=== PATIENT | female | born 1995 | race Caucasian/White ===

== ENCOUNTER 2024-08-30 13:13 | Emergency (ER) | payer OTHER, SELFPAY ==
--- NOTE | ~2024-08-30 | CT_ITS ---
CLINICAL HISTORY: ABD pain, N V D CT abdomen and pelvis with contrast Comparison: None Findings: The lung bases are clear. Unremarkable gallbladder and solid organs. No urolithiasis. No bowel obstruction, pneumoperitoneum, or pneumatosis. Pelvic contents unremarkable. Normal appendix. The bones are intact. IMPRESSION: No acute findings. This document has been electronically signed by: Balaji Cordova MD on 08/30/2024 19:55:25
--- NOTE | 2024-08-30 13:50 | ED.LOWEXIN ---
HPI - Extremity Injury (Lower) General Chief Complaint: Nausea/Vomiting/Diarrhea Stated Complaint: vomiting fever headache chills Time Seen by Provider: 08/30/24 13:58 Source: patient Mode of arrival: ambulatory Limitations: no limitations History of Present Illness ED Provider: junior aguilera cnp HPI Narrative: Patient is a 28-year-old female who presents emergency department for evaluation. She reports at approximately 00:00 this morning she consumed a Lane's, and around 04:00 this morning she began having nausea, vomiting, diarrhea, headache, subjective fever and chills. She denies any recent known sick contacts. She denies any recent URI symptoms. Denies chest pain, hematemesis, constipation, hematochezia, melena, dysuria, urinary frequency, urinary urgency, urinary hesitancy, hematuria. denies pelvic pain or abnormal vaginal discharge. Denies concern for sexually transmitted infection. Denies concern for . Related Data Previous Rx's ?Medication ?Instructions ?Recorded ondansetron 4 mg disintegrating 4 mg PO Q8H PRN nausea and 08/30/24 tablet vomiting #10 tabs Allergies Allergy/AdvReac Type Severity Reaction Status Date / Time No Known Allergies Allergy Verified 08/30/24 13:52 Review of Systems Review of Systems: Yes all other systems are reviewed and are negative PMFSH Past Medical History Attestation statement: The following information was validated with the patient. Source: old records reviewed Social History Social History Alcohol intake: current Smoked in Last 30 Days: No Use of substances other than those prescribed or required for medical reasons: No Advance Directives: No Advance Directives Information Provided: No Patient : No Physical Exam Vital Signs: Vital Signs: Last Vital Signs Temp 98.6 F 08/30/24 19:42 Pulse 107 H 08/30/24 19:42 Resp 16 08/30/24 19:42 BP 125/86 08/30/24 19:42 Pulse Ox 100 08/30/24 19:42 O2 Del Method Room Air 08/30/24 19:42 BMI result Body Mass Index 46.1 Appearance: Alert.?Oriented to person, place and time. No acute distress.?Normal affect.?? Neck: Normal inspection.? Neck supple.?? CVS: Heart sounds normal. Tachycardia.? Pulses normal.?? Respiratory: No respiratory distress.? Lung sounds clear to auscultation bilaterally?? Abdomen: Soft and non-tender. No rebound tenderness at McBurney's point. Negative psoas sign. Negative Rovsing sign. Negative Corley sign. No CVAT. Normoactive bowel sounds. No pulsatile mass.?? Skin: Skin warm and dry.? Normal skin color.? Extremities: No lower extremity edema.? Neuro: Moves all extremities spontaneously. Sensation intact bilaterally. Ambulates with normal steady gait. Course Course Course Narrative: This is a rapid medical exam performed by Arianne Kirkland NP: Additional HPI, ROS, PE not included below will be deferred to primary provider. 08/30/24 13:50 Patient is a 28-year-old female presenting with complaint of nausea, vomiting, diarrhea, headache, subjective fever/chills since 4am. Reports ordering [employer] which was Door Dashed prior to onset of symptoms. Plan: viral panel, labs Reevaluation(s) Reevaluation #1: Patient without relief from Zofran Toradol and Pepcid. On re-evaluation she is exquisitely tender diffusely across the upper abdomen. Will trial morphine IV and Reglan IV, CT AP. Reevaluation #2: CT of the abdomen pelvis is negative without acute pathology. Suspect a gastrointestinal illness either viral or food-borne. These findings were discussed with patient. Advised bland diet over the next few days. Will send an antiemetic to pharmacy. Reviewed strict return precautions. All questions answered Medications Administered Discontinued Medications Generic Name Dose Route Start Last Admin Trade Name Freq PRN Reason Stop Dose Admin Famotidine 20 mg 08/30/24 14:15 08/30/24 14:22 Famotidine/Pf 20 Mg/2 Ml Vial IVPUSH 08/30/24 14:16 20 mg ONCE ONE Administration Sodium Chloride 1,000 mls @ 999 mls/hr 08/30/24 14:15 08/30/24 15:55 Ns IV 08/30/24 15:15 Infused .Q1H1M MORGAN Infusion Sodium Chloride 1,000 mls @ 999 mls/hr 08/30/24 17:45 08/30/24 19:00 Ns IV 08/30/24 18:45 Infused .Q1H1M MORGAN Infusion Iohexol 85 ml 08/30/24 16:19 08/30/24 16:20 Iohexol 350 Mg/Ml 100 Ml Infus..Btl IV 08/30/24 16:20 85 ml ONCE ONE Administration Ketorolac Tromethamine 15 mg 08/30/24 14:15 08/30/24 14:22 Ketorolac Tromethamine 15 Mg/Ml Vial IVPUSH 08/30/24 14:16 15 mg ONCE ONE Administration Metoclopramide HCl 10 mg 08/30/24 15:48 08/30/24 15:59 Metoclopramide Hcl 10 Mg/2 Ml Vial IVPUSH 08/30/24 15:49 10 mg ONCE ONE Administration Morphine Sulfate 4 mg 08/30/24 15:48 08/30/24 15:59 Morphine Sulfate 4 Mg/Ml Cartridge IVPUSH 08/30/24 15:49 4 mg ONCE ONE Administration Protocol Ondansetron HCl 4 mg 08/30/24 14:15 08/30/24 14:22 Ondansetron Hcl 4 Mg/2 Ml Vial IVPUSH 08/30/24 14:16 4 mg ONCE ONE Administration Medical Decision Making Medical Decision Making [facility] Narrative: Patient is a 28-year-old female who presents emergency department for evaluation of nausea vomiting diarrhea and abdominal cramping with onset earlier this morning approximately [address]'s. She arrives mildly tachycardic, she was afebrile, no hypotension. Her abdominal examination is benign. At this time I have a lower suspicion for acute abdomen, there was no peritoneal signs. No associated chest pain or shortness of breath or URI symptoms to suggest pneumonia as a cause for the abdominal pain. I turned this is rather secondary to her acute gastrointestinal illness, as nature possible food-borne illness. Denies any history of cholelithiasis, benign abdominal exam, no fever jaundice that would favor acute cholangitis. She denies history of acid reflux, no hematemesis, lower suspicion for PUD. Denies excessive alcohol consumption or history of diabetes that would suggest acute pancreatitis. No associated genitourinary symptoms to suggest UTI/pyelonephritis, renal colic, hydronephrosis. hCG is negative, unlikely ectopic , lower clinical suspicion for TOA/torsion. Will obtain CBC to evaluate for leukocytosis/ anemia, CMP and lipase to evaluate for abnormal electrolytes /abnormal renal function/ abnormal hepatic/biliary function, viral serologies and Urinalysis. Patient to receive 1 L normal saline IV fluid, Zofran 4 mg IV, famotidine 20 mg IV, Toradol 15 mg IV. Differential Diagnosis Differential Diagnoses: The differential diagnosis associated with the presentation includes (See narrative above) Admission/Observation Consideration of admission/observation: Escalation of care including admission/observation considered (See narrative above and course narrative for further detail) Lab Data MDM Lab Attestation statement: I reviewed the patient's lab results. CBC reveals a leukocytosis of 22,400 with shift (suspect react secondary to vomiting), no anemia or thrombocytopenia. No significant electrolyte derangement. No BABAK. Minimally elevated AST/ALT at 52/76, lipase normal. 08/30/24 14:08 08/30/24 14:08 Labs: Lab Results 08/30/24 08/30/24 08/30/24 Range/Units 14:08 14:11 16:58 WBC 22.4 H (4.8-10.8) X10*3/uL RBC 5.07 (4.20-5.50) X10*6/uL Hgb 14.9 (12.0-16.0) g/dl Hct 43.4 (37.0-47.0) % MCV 85.6 (80.0-98.0) fL MCH 29.4 (27.0-33.0) pg MCHC 34.3 (31.0-35.0) g/dl RDW 13.3 (11.0-16.0) % Plt Count 310 (160-400) X10*3/uL MPV 10.6 (9.4-12.3) fL Immature Gran % (Auto) 0.4 (0.0-0.4) % Neut % (Auto) 92.2 H (45-73) % Lymph % (Auto) 3.4 L (20-40) % [place] % (Auto) 3.6 (2-11) % Eos % (Auto) 0.2 (0-4) % Baso % (Auto) 0.2 (0-2) % Lymph # (Auto) 0.8 L (1.2-4.9) X10*3/uL [place] # (Auto) 0.8 (0.1-1.2) X10*3/uL Eos # (Auto) 0.0 (0.0-0.4) X10*3/uL Baso # (Auto) 0.0 (0.0-0.2) X10*3/uL Abs Immat Gran (auto) 0.09 H (0.00-0.03) X10*3/uL Absolute Neuts (auto) 20.7 H (2.0-8.3) x10*3/uL Absolute Nucleated RBC 0.000 (0.0-0.012) X10*3/uL Nucleated RBC % (auto) 0.0 (0.0-0.2) /100WBC Smear Tech's Comments VERIFIED Sodium 142 (135-145) mmol/L Potassium 4.0 (3.3-5.1) mmol/L Chloride 110 H (96-108) mmol/L Carbon Dioxide 23 (22-29) mmol/L Anion Gap 13 (12-20) BUN 12 (9-16) mg/dL Creatinine 0.73 (0.5-1.4) mg/dL Estim Creat Clear Calc 122.0 Estimated GFR > 60 Random Glucose 107 (60-115) mg/dL Lactic Acid 2.2 H* (0.5-2.0) mmol/L Calcium 9.5 (8.4-10.2) mg/dL Total Bilirubin 0.5 (0.0-1.0) mg/dL AST 52 H (5-31) U/L ALT 76 H (0-31) U/L Alkaline Phosphatase 96 (39-117) U/L Total Protein 8.3 H (6.5-8.0) g/dL Albumin 4.8 (3.5-5.0) g/dL Lipase 12 (8-78) U/L Beta HCG, Quant < 2 mIU/mL Urine Color Urine Appearance Urine pH (5.0-9.0) Ur Specific [place] (1.005-1.025) Urine Protein (Neg-Trace) mg/dL Urine Glucose (UA) (Negative) mg/dL Urine Ketones (Negative) mg/dL Urine Blood (Negative) Urine Nitrite (Negative) Ur Leukocyte Esterase (Negative) Urine RBC (0-2) /HPF Urine WBC (0-5) /HPF Ur Squamous Epith Cells (0-2) /HPF Urine Bacteria (None Seen) Hyaline Casts (0-2) /LPF Influenza Type A (PCR) NEGATIVE (Negative) Influenza Type B (PCR) NEGATIVE (Negative) RSV RNA Qual (PCR) NEGATIVE (Negative) SARS-CoV-2 RNA (RT-PCR) NEGATIVE (Negative) 08/30/24 Range/Units 17:32 WBC (4.8-10.8) X10*3/uL RBC (4.20-5.50) X10*6/uL Hgb (12.0-16.0) g/dl Hct (37.0-47.0) % MCV (80.0-98.0) fL MCH (27.0-33.0) pg MCHC (31.0-35.0) g/dl RDW (11.0-16.0) % Plt Count (160-400) X10*3/uL MPV (9.4-12.3) fL Immature Gran % (Auto) (0.0-0.4) % Neut % (Auto) (45-73) % Lymph % (Auto) (20-40) % [place] % (Auto) (2-11) % Eos % (Auto) (0-4) % Baso % (Auto) (0-2) % Lymph # (Auto) (1.2-4.9) X10*3/uL [place] # (Auto) (0.1-1.2) X10*3/uL Eos # (Auto) (0.0-0.4) X10*3/uL Baso # (Auto) (0.0-0.2) X10*3/uL Abs Immat Gran (auto) (0.00-0.03) X10*3/uL Absolute Neuts (auto) (2.0-8.3) x10*3/uL Absolute Nucleated RBC (0.0-0.012) X10*3/uL Nucleated RBC % (auto) (0.0-0.2) /100WBC Smear Tech's Comments Sodium (135-145) mmol/L Potassium (3.3-5.1) mmol/L Chloride (96-108) mmol/L Carbon Dioxide (22-29) mmol/L Anion Gap (12-20) BUN (9-16) mg/dL Creatinine (0.5-1.4) mg/dL Estim Creat Clear Calc Estimated GFR Random Glucose (60-115) mg/dL Lactic Acid (0.5-2.0) mmol/L Calcium (8.4-10.2) mg/dL Total Bilirubin (0.0-1.0) mg/dL AST (5-31) U/L ALT (0-31) U/L Alkaline Phosphatase (39-117) U/L Total Protein (6.5-8.0) g/dL Albumin (3.5-5.0) g/dL Lipase (8-78) U/L Beta HCG, Quant mIU/mL Urine Color Yellow Urine Appearance Clear Urine pH 5.5 (5.0-9.0) Ur Specific [place] >= 1.030 H (1.005-1.025) Urine Protein 30 (1+) H (Neg-Trace) mg/dL Urine Glucose (UA) Negative (Negative) mg/dL Urine Ketones Negative (Negative) mg/dL Urine Blood Negative (Negative) Urine Nitrite Negative (Negative) Ur Leukocyte Esterase Negative (Negative) Urine RBC 0-2 (0-2) /HPF Urine WBC 0-5 (0-5) /HPF Ur Squamous Epith Cells 11-20 (0-2) /HPF Urine Bacteria 3+ (None Seen) Hyaline Casts 0-2 (0-2) /LPF Influenza Type A (PCR) (Negative) Influenza Type B (PCR) (Negative) RSV RNA Qual (PCR) (Negative) SARS-CoV-2 RNA (RT-PCR) (Negative) Independent Interpretation I performed an independent interpretation of an: CT Scan Radiology Impression Discussion of test interpretation with radiology: I have reviewed the radiologist's reading. Radiologist Impression: CT abdomen and pelvis with contrast Comparison: None Findings: The lung bases are clear. Unremarkable gallbladder and solid organs. No urolithiasis. No bowel obstruction, pneumoperitoneum, or pneumatosis. Pelvic contents unremarkable. Normal appendix. The bones are intact. IMPRESSION: No acute findings. Independent Historian Clinical information obtained from an independent historian. History obtained from or confirmed by: Spouse External Record Review External record reviewed: Outpatient record Prescription Management I considered prescription management with: Other (See course narrative) Discharge Plan Discharge Clinical Impression: Gastroenteritis Patient Disposition: Home, Self-Care Instructions: Gastroenteritis (ED) Additional Instructions: CT scan did not show any abnormal findings. Suspect that your illnesses due to iron there a viral infection or food-borne illness. Be sure that you are staying well hydrated, drink plenty of fluids including at least 8-12 8 oz glasses of water daily. I have sent a prescription for Zofran to your pharmacy to use as needed for nausea/vomiting. Introduce a bland diet including crackers, bananas, rice, soup, toast, and boiled vegetables. This may progress to plain baked or boiled chicken or turkey. Avoid dairy products or foods high in fat or grease. Follow-up with your primary care doctor. Return with any new or worsening symptoms or concerns Prescriptions: New ondansetron 4 mg tablet,disintegrating 4 mg PO Q8H PRN (Reason: nausea and vomiting) Qty: 10 0RF Referrals: Physician,Unknown J [Primary Care Provider] - Print Language: Belarusian
[2024-08-30 13:51] VITALS: BP 106/73; PULSE 114; RESP 16; TEMP 36.7; O2SAT 97; BMI 46.1
[2024-08-30] MEDS: 0.9 % Sodium Chloride 1,000 ML 999 ML IV ×2 (14:20→17:40)
[2024-08-30 14:21] LABS: Basophils Percent Auto 0.2 % (0-2); Eosinophils Percent Auto 0.2 % (0-4); Hematocrit 43.4 % (37.0-47.0); Hemoglobin 14.9 g/dl (12.0-16.0); Imm Gran Abs Auto 0.09 X10*3/uL (0.00-0.03); Imm Gran Pct Auto 0.4 % (0.0-0.4); Lymphocytes Absolute Auto 0.8 X10*3/uL (1.2-4.9); Lymphocytes Percent Auto 3.4 % (20-40); MANUAL DIFF FLAG SCAN; Mean Corpuscular HGB Conc 34.3 g/dl (31.0-35.0); Mean Corpuscular Hemoglobin 29.4 pg (27.0-33.0); Mean Corpuscular Volume 85.6 fL (80.0-98.0); Mean Platelet Volume 10.6 fL (9.4-12.3); Monocytes Absolute Auto 0.8 X10*3/uL (0.1-1.2); Monocytes Percent Auto 3.6 % (2-11); Neutrophils Absolute Auto 20.7 x10*3/uL (2.0-8.3); Neutrophils Percent Auto 92.2 % (45-73); Platelet Count 310 X10*3/uL (160-400); Red Blood Count 5.07 X10*6/uL (4.20-5.50); Red Cell Distribution Width 13.3 % (11.0-16.0); SCAN SMEAR FLAG 1; White Blood Count 22.4 X10*3/uL (4.8-10.8)
[2024-08-30] MEDS: ondansetron HCL 4 MG/2 ML VIAL IVPUSH (14:22)
[2024-08-30] MEDS: Ketorolac Tromethamine 15 MG/ML VIAL IVPUSH (14:22)
[2024-08-30] MEDS: Famotidine/PF 20 MG/2 ML VIAL IVPUSH (14:22)
[2024-08-30 14:33] LABS: Alanine Aminotransferase 76 U/L (0-31); Albumin Level 4.8 g/dL (3.5-5.0); Alkaline Phosphatase 96 U/L (39-117); Anion Gap 13 (12-20); Aspartate Amino Transferase 52 U/L (5-31); Bilirubin Total 0.5 mg/dL (0.0-1.0); Blood Urea Nitrogen 12 mg/dL (9-16); Calcium 9.5 mg/dL (8.4-10.2); Carbon Dioxide 23 mmol/L (22-29); Chloride 110 mmol/L (96-108); Estimated Glomerular Filt Rate > 60; Glucose Random 107 mg/dL (60-115); Sodium 142 mmol/L (135-145); Total Protein 8.3 g/dL (6.5-8.0)
[2024-08-30 14:51] LABS: Influenza A PCR NEGATIVE (Negative); Influenza B PCR NEGATIVE (Negative); Resp Syncy Virus RNA Qual PCR NEGATIVE (Negative); SARS COV2 PCR INHOUSE NEGATIVE (Negative)
[2024-08-30 14:51] LABS: HCG Quantitative < 2 mIU/mL
[2024-08-30 14:54] LABS: SLIDE REVIEW VERIFIED
[2024-08-30 14:56] LABS: Lipase 12 U/L (8-78)
[2024-08-30] MEDS: Morphine Sulfate 4 MG/ML CARTRIDGE IVPUSH (15:59)
[2024-08-30] MEDS: Metoclopramide HCl 10 MG/2 ML VIAL IVPUSH (15:59)
[2024-08-30] MEDS: iohexoL 350 MG/ML 100 ML INFUS..BTL 85 ML IV (16:20)
[2024-08-30 16:43] VITALS: BP 121/52; PULSE 106; RESP 16; TEMP 36.8; O2SAT 98
[2024-08-30 17:24] LABS: Lactic Acid 2.2 mmol/L (0.5-2.0)
[2024-08-30 17:46] LABS: Appearance Urine Clear; Color Urine Yellow; Glucose Urine UA Negative (Negative); Leukocyte Esterase Urine Negative (Negative); Nitrite Urine Negative (Negative); PH 5.5 (5.0-9.0); Specific Gravity - Urine >= 1.030 (1.005-1.025); UMIC TRIGGER UACC YES; Urine Blood Negative (Negative); Urine Ketones Negative (Negative); Urine Protein 30 (1+) mg/dL (Neg-Trace)
[2024-08-30 17:59] LABS: Bacteria Urine 3+ (None Seen); Hyaline Casts Urine 0-2 /LPF (0-2); RBC Urine 0-2 /HPF (0-2); WBC Urine 0-5 /HPF (0-5)
[2024-08-30 19:00] LABS: Reflex Lactate? Lactic Acid Added
--- NOTE | 2024-08-30 19:38 | PC.NURSE ---
pt states she does not want to wait for ct scan results, states mild nausea but denies pain at this time. states believes sx are related to the food she ate. she verbalizes understanding her lab results and importance of waiting for ct scan but wants to leave. spoke with Pete GRECO and states pt can sign out AMA. pt states she understands the plan/risks of leaving. wanting couple minutes to think about it. vitals as documented.
[2024-08-30 19:42] VITALS: BP 125/86; PULSE 107; RESP 16; TEMP 37; O2SAT 100
[2024-08-30 20:50] VITALS: BP 125/86; PULSE 107; RESP 16; TEMP 37; O2SAT 100
== END 2024-08-30 20:53 | disposition home or self-care (01) ==
PROVIDERS: Nurse Practitioner Family; Registered Nurse Emergency; Emergency Provider Emergency Medicine
DX: K52.9 Noninfective gastroenteritis and colitis, unspecified (principal); R11.2 Nausea with vomiting, unspecified; R50.9 Fever, unspecified; R51.9 Headache, unspecified; R10.2 Pelvic and perineal pain; Z79.899 Other long term (current) drug therapy; Z03.818 Encounter for observation for suspected exposure to other biological agents ruled out
CPT/HCPCS: 0241U; 36415; 74177; 80053; 81001; 83605; 83690; 84702; 85025; 87040; 96361; 96374; 96375; 99284; J1885; J2270; J2405; J2765; Q9967

== ENCOUNTER → 2024-08-30 15:48 | Outpatient (BNV) | payer OTHER, SELFPAY | PROVIDERS: Emergency Provider Emergency Medicine; Visit Provider Radiology Diagnostic Radiology | DX: R10.9 Unspecified abdominal pain (principal); R11.2 Nausea with vomiting, unspecified | CPT/HCPCS: 74177 ==